=== PATIENT | female | born 1970 | race Caucasian/White ===

== ENCOUNTER 2024-08-02 12:33 | Outpatient (AMB) | payer OTHER, MEDICAID, SELFPAY ==
--- NOTE | 2024-08-02 12:36 | MHC.OFFVIS ---
Vital Signs 08/02/24 12:38 Height 5 ft 2 in Weight 172 lb 6.424 oz BMI 31.5 BP 122/72 Blood Pressure Location Lt brachial Position Sitting Pulse 85 Pulse Source Pulse Oximeter Pulse Oximetry (%) 97 Oxygen Delivery Method Room Air Intake Visit Reasons: RA//RECORDS RECIEVED Intake Note: Patient presents today for rheumatoid arthritis. Allergies adhesive tape Allergy (Mild, Verified 08/02/24 12:42) Rash gibran Allergy (Mild, Verified 08/02/24 12:05) Unknown solifenacin [From Vesicare] Adverse Reaction (Unknown, Unverified 08/02/24 12:05) Unknown amoxicillin Allergy (Mild, Uncoded 08/02/24 12:42) Unknown blueberries Allergy (Unknown, Uncoded 08/02/24 12:05) Unknown HPI HPI RA//RECORDS RECIEVED: Details: New psoriasis in scalp, palms of hands and neck in May 2024. Loosing hair. She held Humira due to COVID for a few days. Recovered. Cold weather is exacerbating her RA. Rheumatology history: History of rheumatoid arthritis seropositive low titer positive rheumatoid factor 18.6, low titer positive anti CCP antibody. Transaminitis on methotrexate january 2022 to 08/03/2022 methotrexate 12.5 mg once weekly but not on 10 mg once weekly. Hydroxychloroquine July 2022 discontinued due to angioedema and rash. Leflunomide caused mouth sores. Humira 10/03/2023- History of osteoarthritis affecting right knee. Mild medial joint space narrowing on x-ray 10/03/2023. She has had cortisone injections 01/02/2024 and 04/02/2024. 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 She has erythematous lesions on right anterior neck and occipital region of her scalp. Extrem Other: Tender to palpate right MCPs. Tender right PIPs. No synovitis present. Good range of motion of joints in upper extremity and lower extremity. Right MTP tenderness on palpation. Assessment & Plan Assessment & Plan (1) Rheumatoid arthritis: Comment: Uncontrolled polyarthralgias on Humira. She has developed plaque psoriasis/scalp psoriasis, which could be drug-induced. We discussed next steps and DMARD treatment. Discussed side effects, benefits and drug monitoring on Xeljanz Code(s): M06.9 - Rheumatoid arthritis, unspecified Category: Medical Plan: Discontinue Humira Dermatology referral for evaluation psoriasis Labs for disease and drug monitoring ordered. After lab results are back and are okay, we will process PA for Xeljanz (2) Psoriasis: Comment: New onset while on Humira. Can consider drug-induced Code(s): L40.9 - Psoriasis, unspecified Category: Medical Plan: Dermatology evaluation (3) Other long term acute care registered nurse (current) drug therapy: Comment: See above Code(s): Z79.899 - Other long term acute care registered nurse (current) drug therapy Category: Medical Plan . Orders: Orders Alanine Aminotransferase Today L40.9 - Psoriasis, unspecified, M06.9 - Rheumatoid arthritis, unspecified, Z79.899 - Other longterm (current) drug therapy Complete Blood Count Auto Diff Today M06.9 - Rheumatoid arthritis, unspecified, Z79.899 - Other long term acute care registered nurse (current) drug therapy Creatinine Today M06.9 - Rheumatoid arthritis, unspecified, Z79.899 - Other long term acute care registered nurse (current) drug therapy Erythrocyte Sedimentation Rate Today M06.9 - Rheumatoid arthritis, unspecified, Z79.899 - Other long term acute care registered nurse (current) drug therapy Aspartate Amino Transferase Today M06.9 - Rheumatoid arthritis, unspecified, Z79.899 - Other long term acute care registered nurse (current) drug therapy C Reactive Protein Today M06.9 - Rheumatoid arthritis, unspecified, Z79.899 - Other longterm (current) drug therapy Hepatitis B,C Profile Today M06.9 - Rheumatoid arthritis, unspecified, Z79.899 - Other long term acute care registered nurse (current) drug therapy T Spot TB Today M06.9 - Rheumatoid arthritis, unspecified, Z79.899 - Other longterm (current) drug therapy Lipid Panel Today M06.9 - Rheumatoid arthritis, unspecified, Z79.899 - Other longterm (current) drug therapy Referrals Dermatology Referral L40.9 - Psoriasis, unspecified Coding Level of Care Code Est Pt Level 4 (49353) Diagnoses Rheumatoid arthritis M06.9 Psoriasis L40.9 Other long term acute care registered nurse (current) drug therapy Z79.899
[2024-08-02 12:38] VITALS: BP 122/72; PULSE 85; O2SAT 97; BMI 31.5
== END 2024-08-02 13:20 | disposition home or self-care (01) ==
PROVIDERS: Visit Provider Internal Medicine Rheumatology
DX: M06.9 Rheumatoid arthritis, unspecified (principal); L40.9 Psoriasis, unspecified; Z79.899 Other long term (current) drug therapy
CPT/HCPCS: 99214

== ENCOUNTER 2024-08-02 12:33 | Outpatient (REF) | payer OTHER, MEDICAID, SELFPAY | END 2024-08-02 12:34 | disposition home or self-care (01) | LOC: HO.LAB 12:33 | PROVIDERS: Visit Provider Internal Medicine Rheumatology | DX: L40.9 Psoriasis, unspecified (principal); M06.9 Rheumatoid arthritis, unspecified; Z79.899 Other long term (current) drug therapy | CPT/HCPCS: 99212 ==

== ENCOUNTER 2024-08-03 13:08 | Outpatient (REF) | payer OTHER, MEDICAID, SELFPAY ==
[2024-08-03 13:22] LABS: MANUAL DIFF FLAG NO
[2024-08-03 13:49] LABS: Basophils Absolute Auto 0.1 X10*3/uL (0.0-0.2); Basophils Percent Auto 0.7 % (0-2); Eosinophils Absolute Auto 0.2 X10*3/uL (0.0-0.4); Eosinophils Percent Auto 2.5 % (0-4); Hematocrit 44.9 % (37.0-47.0); Hemoglobin 15.6 g/dl (12.0-16.0); Imm Gran Abs Auto 0.06 X10*3/uL (0.00-0.03); Imm Gran Pct Auto 0.7 % (0.0-0.4); Lymphocytes Absolute Auto 3.4 X10*3/uL (1.2-4.9); Lymphocytes Percent Auto 36.9 % (20-40); Mean Corpuscular HGB Conc 34.7 g/dl (31.0-35.0); Mean Corpuscular Hemoglobin 34.4 pg (27.0-33.0); Mean Corpuscular Volume 99.1 fL (80.0-98.0); Mean Platelet Volume 12.1 fL (9.4-12.3); Monocytes Absolute Auto 0.6 X10*3/uL (0.1-1.2); Monocytes Percent Auto 6.8 % (2-11); Neutrophils Absolute Auto 4.8 x10*3/uL (2.0-8.3); Neutrophils Percent Auto 52.4 % (45-73); Platelet Count 189 X10*3/uL (160-400); Red Blood Count 4.53 X10*6/uL (4.20-5.50); White Blood Count 9.2 X10*3/uL (4.8-10.8)
[2024-08-03 14:14] LABS: Alanine Aminotransferase 62 U/L (0-31); Aspartate Amino Transferase 69 U/L (5-31); C Reactive Protein 0.75 mg/dL (< or = 0.50); Cholesterol 213 mg/dL (<200); Estimated Glomerular Filt Rate > 60; HDL Cholesterol 58 mg/dL (>40); LDL Cholesterol Calculated 101 mg/dL (<100); Triglycerides 274 mg/dL (<150)
[2024-08-03 14:30] LABS: Erythrocyte Sedimentation Rate 6 MM/HR (0-20)
[2024-08-04 04:26] LABS: HBc Num1 0.03 S/CO (0.00-0.79); HBsAGNum1 0.28 S/CO (0.00-0.99); Hepatitis B Core Antibody Nonreactive (Nonreactive); Hepatitis B Surface Antigen Negative (Negative); ~Hepatitis B Surface Antibody NONREACTIVE (Nonreactive); ~Hepatitis C Antibody Nonreactive (Nonreactive)
[2024-08-05 23:42] LABS: TS Negative Control Passed; TS Panel A 0; TS Panel B 0; TS Positive Control Passed; TSpotTB Negative (Negative)
== END 2024-08-03 13:09 | disposition home or self-care (01) ==
LOC: HO.LAB 13:08
PROVIDERS: Visit Provider Internal Medicine Rheumatology
DX: L40.9 Psoriasis, unspecified (principal); Z79.899 Other long term (current) drug therapy; M06.9 Rheumatoid arthritis, unspecified
CPT/HCPCS: 36415; 80061; 82565; 84450; 84460; 85025; 85652; 86140; 86481; 86704; 86706; 86803; 87340

== ENCOUNTER 2024-09-01 08:50 | Outpatient (REF) | payer OTHER, MEDICAID, SELFPAY ==
[2024-09-01 10:40] LABS: Erythrocyte Sedimentation Rate 9 MM/HR (0-20)
[2024-09-01 10:51] LABS: Alanine Aminotransferase 50 U/L (0-31); Albumin Level 3.9 g/dL (3.5-5.0); Alkaline Phosphatase 110 U/L (39-117); Aspartate Amino Transferase 41 U/L (5-31); Bilirubin Direct 0.1 mg/dL (0.0-0.5); Bilirubin Total 0.4 mg/dL (0.0-1.0); C Reactive Protein 0.96 mg/dL (< or = 0.50); Cholesterol 196 mg/dL (<200); HDL Cholesterol 54 mg/dL (>40); LDL Cholesterol Calculated 96 mg/dL (<100); Total Protein 7.1 g/dL (6.5-8.0); Triglycerides 233 mg/dL (<150)
== END 2024-09-01 08:51 | disposition home or self-care (01) ==
LOC: HO.LAB 08:50
PROVIDERS: Visit Provider Internal Medicine Rheumatology
DX: Z79.899 Other long term (current) drug therapy (principal)
CPT/HCPCS: 36415; 80061; 80076; 85652; 86140